=== PATIENT | female | born 2000 | race Caucasian/White ===

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

== ENCOUNTER 2020-06-15 22:10 | Emergency (ER) | payer OTHER ==
[~2020-06-15] VITALS: Ht 175.3 cm; Wt 68.2 kg
[~2020-06-15 22:10] MED LIST: K-DUR20 MEQ PO; WELLBUTRIN XL300 M1 PO
[2020-06-15 22:15] VITALS: TEMP 97.6
[2020-06-15 22:41] LABS: HEMATOCRIT 40.2 % (37.0-47.0); HEMOGLOBIN 13.3 g/dl (12.5-16.0); MEAN CELL VOLUME 87 fl (80.0-100.0); MEAN CORPUSCULAR HEMOGLOBIN 29 pg (27.0-31.0); MEAN CORPUSCULAR HGB CONC 33 g/dl (33.0-37.0); MEAN PLATELET VOLUME 9.4 fl (7.4-10.4); PLATELET COUNT 212 K/mm3 (130-400); RED BLOOD COUNT 4.63 M/mm3 (4.10-5.30); REDCELL DISTRIBUTION WIDTH-CV 12.7 % (11.5-14.5)
[2020-06-15 22:54] LABS: ALBUMIN 4.5 gm/dL (3.5-5.0); BILIRUBIN,TOTAL 0.9 mg/dL (0.0-1.0); CALCIUM 8.9 mg/dL (8.4-10.2); CREATININE, serum 1.4 (0.52-1.25); POTASSIUM 4.2 mmol/L (3.4-5.0); TOTAL PROTEIN 8.1 gm/dL (6.4-8.2)
[2020-06-15 23:20] LABS: BAND 24 % (0-10); LYMPHOCYTE 5 % (20.0-51.0); NEUTROPHILS 66 % (42.0-75.2)
[2020-06-15 23:21] LABS: PLATELET ESTIMATE NORMAL (NORMAL)
[2020-06-16 02:11] LABS: COLLECTION METHOD CLEAN CATCH
[2020-06-16 02:13] VITALS: BP 105/69; PULSE 89
[2020-06-16 02:27] LABS: MUCOUS Present /lpf; PH 5 (5-8); URINE APPEARANCE Clear; URINE BACTERIA None Seen /hpf; URINE BILIRUBIN Negative (NEGATIVE); URINE BLOOD Negative (NEGATIVE); URINE COLOR Yellow; URINE GLUCOSE Negative (NEGATIVE); URINE KETONE Negative (NEGATIVE); URINE LEUKOCYTE ESTERASE Trace (NEGATIVE); URINE NITRATE Negative (NEGATIVE); URINE PROTEIN(semi-quant) Negative (NEGATIVE); URINE RBC 0-2 /hpf; URINE UROBILINOGEN Negative (NEGATIVE)
== END 2020-06-16 02:12 | disposition home or self-care (01) ==
LOC: COL.ER 22:10
PROVIDERS: Physician Assistant
DX: K52.9 Noninfective gastroenteritis and colitis, unspecified (principal); E86.0 Dehydration; Z88.0 Allergy status to penicillin; Z88.1 Allergy status to other antibiotic agents
CPT/HCPCS: J1170; J2405; J7030; Q9967

== ENCOUNTER 2021-05-14 14:10 | Outpatient (CLI) | payer MEDICAID ==
[~2021-05-14] VITALS: Ht 172.7 cm; Wt 92.7 kg
--- NOTE | 2021-05-14 14:18 | NUR ---
1418- PT TO UNIT FROM CLINIC FOR EXTENDED MONITORING. TO LDR4 BY SELF, CHANGES INTO CLEAN GOWN. 1426- EFM EXPLAINED AND PLACED. PT REPORTS NORMAL MOVEMENT AND IRREGULAR CONTRACTIONS. DENIES LOF OR VB. ASSESSMENT COMPLETED, VS OBTAINED. POC REVIEWED. 1504- UPDATED ON PT. SEE PHYSICIAN NOTIFICATION. 1522- UPDATED ON PT. SEE PHYSICIAN NOTIFICATION. 1536- EFM OFF. PT UP TO BATHROOM TO CHANGE. 1548- DISCHARGE INSTRUCTIONS REVIEWED. PT VERBALIZES UNDERSTANDING. AMBULATORY OFF UNIT.
[2021-05-14 14:45] VITALS: BP 120/80; PULSE 102; TEMP 98.3
[2021-05-14] MEDS ORDERED: CEPHALEXIN500 M1 PO (14:48)
[2021-05-14] MEDS ORDERED: LAMICTAL 25MG T25 MG PO (14:48)
[2021-05-14] MEDS ORDERED: PRENATAL TABLET PO (14:49)
[2021-05-14] MEDS ORDERED: DIFFERIN0.3% TP (14:49)
[2021-05-14 15:15] VITALS: BP 119/75; PULSE 81
[2021-05-14 15:36] VITALS: BP 110/76; PULSE 90
== END 2021-05-14 15:48 | disposition home or self-care (01) ==
LOC: LDRO 14:10 → LDR 14:14 → LDRO 15:48
DX: Z34.93 Encounter for supervision of normal pregnancy, unspecified, third trimester (principal); Z3A.40 40 weeks gestation of pregnancy
CPT/HCPCS: OP

== ENCOUNTER 2021-05-22 06:18 | Inpatient (IN) | payer MEDICAID ==
[~2021-05-22] VITALS: Ht 172.7 cm; Wt 92.7 kg
[2021-05-22] VITALS (46 sets, daily range): BP systolic 98–182; BP diastolic 57–98; PULSE 74–139; TEMP 97.4–97.8
[~2021-05-22 06:18] MED LIST changes: +CEPHALEXIN500 M1 PO; +DIFFERIN0.3% TP; +LAMICTAL 25MG T25 MG PO; +PRENATAL TABLET PO
--- NOTE | 2021-05-22 07:48 | NUR ---
0620: AMBULATORY TO UNIT WITH FOB FOR SCHEDULED INDUCTION OF LABOR FOR POST DATES. PT. ESCORTED TO LR4 AND INSTRUCTED ON NEXT STEPS. CHANGED INTO CLEAN GOWN. EFM/TOCO APPLIED TO PT AND EXPLAINED. VS OBTAINED, ASSESSMENTS COMPLETED, CONSENTS GONE OVER/SIGNED, AND IV PLACED. DISCUSSED PLAN OF CARE WITH PT. AND SHE IS UNDERSTANDING AND AGREEABLE. NO QUESTIONS OR CONCERNS AT THIS TIME. SVE PERFORMED /. WILL CONTINUE TO MONITOR PT.
[2021-05-22 07:51] LABS: BASO % 0.3 % (0.0-2.0); EOS # 0.1 (0.0-0.7); EOS % 0.6 % (0-4.0); GRAN # 7.6 (1.4-6.5); GRAN % 72.4 % (42.2-75.2); HEMATOCRIT 39.3 % (37.0-47.0); HEMOGLOBIN 13.4 g/dl (12.5-16.0); LYMPH # 2.2 (1.2-3.4); LYMPH % 20.6 % (20.0-51.0); MEAN CELL VOLUME 91 fl (80.0-100.0); MEAN CORPUSCULAR HEMOGLOBIN 31 pg (27.0-31.0); MEAN CORPUSCULAR HGB CONC 34 g/dl (33.0-37.0); MEAN PLATELET VOLUME 10.7 fl (7.4-10.4); MONO # 0.6 (0.1-0.6); MONO % 5.3 % (1.7-9.3); PLATELET COUNT 195 K/mm3 (130-400); RED BLOOD COUNT 4.34 M/mm3 (4.10-5.30); REDCELL DISTRIBUTION WIDTH-CV 14.7 % (11.5-14.5)
--- NOTE | 2021-05-22 07:55 | NUR ---
HEART TONES: 0700: PERIOD OF MINIMAL VARIABILITY NOTED. PT. TURNED TO R. SIDE 0730: PERIODS OF MINIMAL VARIABILITY NOTED.
--- NOTE | 2021-05-22 11:03 | NUR ---
EPIDURAL: 1016: LR BOLUS STARTED 1030: JARROD RAMIREZ CALLED FOR EPIDURAL 1034: SITTING UP FOR EPIDURAL 1038: JARROD RAMIREZ AT FOR EPIDURAL 1040: TIME OUT PERFORMED 1044: SINGLE SHOT PT. TOLERATED PROCEDURE WELL. NO QUESTIONS OR CONCERNS AT THIS TIME. WILL CONTINUE TO MONITOR PT
--- NOTE | 2021-05-22 18:58 | NUR ---
DELIVERY NOTE: PT. COMPLETE AT 1542. LEFT MESSAGE W/ DR. CAMPUZANO ABOUT SVE. DR. CAMPUZANO ON UNIT AT 1600. INSTRUCTED TO START PUSHING WITH PT. 1605: STARTED PUSHING W/ PATIENT. DESCENT WITH PUSHING. PUSHED IN LITHOTOMY, TUG OF WAR PUSHING, AND CLOSED KNEE PUSHING WAS DONE WITH GOOD PROGRESSION. 1710: DR. CAMPUZANO AT FOR DELIVERY 1715: DELIVERED VIABLE MALE VIA . INFANT PLACED ON ABDOMEN AND NURSERY NURSE TOOK OVER CARE OF INFANT. 1719: PLACENTA OUT AND PITOCIN STARTED. PER DR. CAMPUZANO, SECOND DEGREE WAS NOTED. DR. CAMPUZANO AT PERINEUM FOR LACERATION REPAIR. 1730: FUNDAL RUB WAS PERFORMED BY DR. CAMPUZANO AND THIS RN. FUNDUS FIRM AT UMBILICUS WITH MINIMAL BLEEDING. EBL 200ML PER DR. CAMPUZANO (SEE DELIVERY NOTE). PT. ENTERS RECOVERY AND WILL CONTINUE TO MONITOR
--- NOTE | 2021-05-22 19:30 | NUR ---
1930 IV TO INT. EPID CATH REMOVED. MOVES LEGS WELL IN BED. UP TO BR WITH ASSIST AND UNABLE TO VOID. PERICARE DONE AND AMB TO 214 WITH DIFFICULTY. ICE TO PERINEUM. ORIENTED TO ROOM.
--- NOTE | 2021-05-22 20:45 | NUR ---
Assumed care at this time.
[2021-05-23 01:40] VITALS: BP 124/76; PULSE 87; TEMP 97.6
[2021-05-23 05:10] VITALS: BP 118/79; PULSE 73; TEMP 97.1
[2021-05-23 08:45] VITALS: BP 128/88; PULSE 96; TEMP 98.1
[2021-05-23] MEDS ORDERED: IBU800 M1 PO (09:15)
--- NOTE | 2021-05-23 09:43 | NUR ---
Initial visit; Parents thanked Multi Spindle Operator for offering congratulations and God's blessings for the of their son. Multi Spindle Operator thanked family for choosing our hospital.
[2021-05-23 17:01] VITALS: BP 135/79; PULSE 92; TEMP 97.7
[2021-05-23 23:15] VITALS: BP 113/76; PULSE 92; TEMP 97.6
[2021-05-24 07:40] VITALS: BP 123/70; PULSE 93; TEMP 98
[2021-05-24] MEDS ORDERED: ROXICODONE 55 MG/TAB PO (08:07)
== END 2021-05-24 17:00 | disposition home or self-care (01) | DRG 807 ==
LOC: LDR 06:18 → OB 06:18
PROVIDERS: ADMIT Student in an Organized Health Care Education/Training Program
PROC: 10E0XZZ Delivery of Products of Conception, External Approach (ICD-10-PCS; principal; 2021-05-22)
PROC: 0KQM0ZZ Repair Perineum Muscle, Open Approach (ICD-10-PCS; 2021-05-22)
PROC: 3E033VJ Introduction of Other Hormone into Peripheral Vein, Percutaneous Approach (ICD-10-PCS; 2021-05-22)
DX: O48.0 Post-term pregnancy (principal); Z37.0 Single live birth; O99.344 Other mental disorders complicating childbirth; F32.9 Major depressive disorder, single episode, unspecified; O70.1 Second degree perineal laceration during delivery; O69.81X0 Labor and delivery complicated by cord around neck, without compression, not applicable or unspecified; Z3A.41 41 weeks gestation of pregnancy
CPT/HCPCS: J2405; J2590; J2795; J7120

== ENCOUNTER 2024-06-16 12:09 | Inpatient (IN) | payer OTHER ==
[~2024-06-16] VITALS: Ht 175.3 cm; Wt 84.5 kg
[~2024-06-16 12:09] MED LIST changes: +ATARAX 25MG25 MG/TAB PO; +IBU800 M1 PO; +ROXICODONE 55 MG/TAB PO
[2024-06-23] VITALS (26 sets, daily range): BP systolic 100–131; BP diastolic 55–83; PULSE 68–114; TEMP 98–98.4
[2024-06-23] MEDS ORDERED: LR 1,000 ML IV SCH (06:15)
[2024-06-23] MEDS ORDERED: LR & Oxytocin 500 ML IV SCH (06:15)
--- NOTE | 2024-06-23 07:00 | NUR ---
PT AMBULATES ONTO THE UNIT WITH SIGNIFICANT OTHER FOR INDUCTION OF LABOR. PT DENIES LOF/VB.PT REPORTS DORIAN MARSH CONTRACTIONS IRREGULARLY.PT CHANGED INTO GOWN.POC REVIEWED WITH PT.PT VERBALIZES UNDERSTANDING.EFM AND TOCO APPLIED AND TRACING CATEGORY 1. CONSENTS REVIEWED AND SIGNED BY PT.QUESTIONS ASKED AND ANSWERED.
[2024-06-23 07:48] LABS: HEMATOCRIT 38.2 % (37.0-47.0); HEMOGLOBIN 12.8 g/dl (12.5-16.0); MEAN CELL VOLUME 90 fl (80.0-100.0); MEAN CORPUSCULAR HEMOGLOBIN 30 pg (27-31); MEAN CORPUSCULAR HGB CONC 34 g/dl (33.0-37.0); MEAN PLATELET VOLUME 10.9 fl (7.4-10.4); PLATELET COUNT 196 K/mm3 (130-400); RED BLOOD COUNT 4.24 M/mm3 (4.10-5.30); REDCELL DISTRIBUTION WIDTH-CV 13.8 % (11.5-14.5)
--- NOTE | 2024-06-23 07:55 | NUR ---
DR DOWD AT BEDSIDE. SVE 2-/-2. 0750 AROM PERFORMED WITH CLEAR FLUID.PT TOLERATED PROCEDURE WELL.
[2024-06-23] MEDS ORDERED: ROPivacaine PF 0.2% 200 ML IV ONE (08:12)
[2024-06-23 08:20] LABS: BASO % 0.2 % (0.0-2.0); EOS # 0.1 K/mm3 (0.0-0.7); EOS % 0.5 % (0.0-4.0); GRAN # 6.7 K/mm3 (1.4-6.5); GRAN % 71.2 % (42.2-75.2); LYMPH % 21.4 % (20.0-51.0); MONO # 0.6 K/mm3 (0.1-0.6); MONO % 6.3 % (1.7-9.3)
--- NOTE | 2024-06-23 08:43 | NUR ---
PT SITTING ON THE SIDE OF THE BED FOR EPIDURAL PLACEMENT.LR BOLUS INFUSING PER PROTOCOL.PULSE OX AND BP TRACING EVERY 5 MINUTES. DIFFICULTY TRACING EFM AND TOCO DUE TO MATERNAL POSITIONING. 0835 SINGLE SHOT ADMINISTERED PER JARROD SANTILLAN.PT TOLERATED PROCEDURE WELL.
[2024-06-23] MEDS ORDERED: Ondansetron 4 MG/2 ML VIAL IV PRN (09:00)
[2024-06-23] MEDS ORDERED: Naloxone 0.4 MG/ML VIAL IV PRN ×2 (09:00→11:45)
[2024-06-23] MEDS ORDERED: ePHEDrine 50 MG/10 ML VIAL IV PRN (09:00)
[2024-06-23] MEDS ORDERED: diphenhydrAMINE 25 MG CAP PO PRN (09:00)
[2024-06-23] MEDS ORDERED: diphenhydrAMINE 50 MG/ML 1 ML VIAL IV PRN (09:00)
--- NOTE | 2024-06-23 11:31 | NUR ---
1105 DECEL NOTED AND AUDIBLE INTO THE 90'S.THIS RN AT BEDSIDE. SVE 8/100/-1. PT REPOSITIONED TO WEDGED RIGHT LATERAL. HEARTRATE RECOVERS AT THIS TIME.
[2024-06-23] MEDS ORDERED: oxyCODONE 5 MG TAB PO PRN (11:45)
[2024-06-23] MEDS ORDERED: Measles/Mumps/Rubella Virus Vaccine Live w Diluent 0.5 ML VIAL SQ SCH (11:45)
[2024-06-23] MEDS ORDERED: Magnes Hydrox (MOM) 80 MG/ML 30 ML CUP PO PRN (11:45)
[2024-06-23] MEDS ORDERED: Phenylephrine/Mineral Oil/Petrolatum 57 GM TUBE RC PRN (11:45)
[2024-06-23] MEDS ORDERED: Witch Hazel 50% Pads Bulk TUB TP PRN (11:45)
[2024-06-23] MEDS ORDERED: Ibuprofen 800 MG TAB PO SCH (11:45)
[2024-06-23] MEDS ORDERED: Loratadine 10 MG TAB PO PRN (11:45)
[2024-06-23] MEDS ORDERED: Acetaminophen 500 MG TAB PO PRN (11:45)
[2024-06-23] MEDS ORDERED: Mag/Al Hydrox/Simeth Susp 30 ML CUP PO PRN (11:45)
--- NOTE | 2024-06-23 12:42 | NUR ---
1145 DR DOWD AT BEDSIDE.PT COMPLETE PER SVE. ROOM PREPARED FOR DELIVERY.ALL APPROPRIATE STAFF NOTIFIED. 1158 OF VIABLE FEMALE .NUCHAL CORD X1 EASILY REDUCED BY DR DOWD.STRONG CRY NOTED AT DELIVERY WITH STIMULATION. CORD CLAMPED AND CUT BY FATHER OF THE BABY. PLACED ON MATERNAL ABDOMEN. INFANT CARES ASSUMED BY ANGIE HALLMAN RN. 1159 OF INTACT PLACENTA. PITOCIN BOLUS INFUSING PER PROTOCOL. FUNDUS FIRM AT THE UMBILICUS WITH FUNDAL MASSAGE.LOCHIA WITHIN NORMAL LIMITS. TOTAL QBL FOR CASE 125CC.
[2024-06-23] MEDS ORDERED: MOTRIN 800800 MG/TAB PO (15:48)
[2024-06-23] MEDS ORDERED: Sennosides/Docusate 8.6-50 MG TAB PO SCH (17:00)
[2024-06-23] MEDS ORDERED: traZODone 50 MG TAB PO PRN (21:00)
[2024-06-24 00:45] VITALS: BP 110/69; PULSE 74; TEMP 97.8
[2024-06-24 04:48] VITALS: BP 124/77; PULSE 83; TEMP 97.9
--- NOTE | 2024-06-24 06:02 | NUR ---
PT IS WITHOUT COMPLAINT AT THIS TIME. HAD SEVERE CRAMPING WHEN NURSING WHICH WAS RELIEVED WITH MEDICATION. BLEEDING HAS BEEN WNL. BABY HAS BEEN KEEPING HER AWAKE MOST OF THE NIGHT BUT THE PT DECLINED HAVING HER TAKEN TO THE NURSERY. PT HAS APPEARED TO BE COPING WELL DESPITE HAVING SOME CONCERNS ABOUT AND THE BABY BEING FUSSY. HOPES TO BE DISCHARGED TODAY.
[2024-06-24 08:30] VITALS: BP 102/69; PULSE 73; TEMP 97.8
[2024-06-24] MEDS ORDERED: lamoTRIgine 100 MG TAB PO ONE (08:30)
--- NOTE | 2024-06-24 09:43 | NUR ---
Initial visit; Patient thanked Charge Account Identification Clerk for offering congratulations and God's blessings to her family for the of their daughter. Charge Account Identification Clerk thanked patient for choosing our hospital and wished them well.
== END 2024-06-24 14:10 | disposition home or self-care (01) | DRG 807 ==
LOC: LDR 06-23 06:35 → OB 06-23 11:09
PROVIDERS: ADMIT Obstetrics & Gynecology
PROC: 10E0XZZ Delivery of Products of Conception, External Approach (ICD-10-PCS; principal; 2024-06-23)
PROC: 10907ZC Drainage of Amniotic Fluid, Therapeutic from Products of Conception, Via Natural or Artificial Opening (ICD-10-PCS; 2024-06-23)
PROC: 3E033VJ Introduction of Other Hormone into Peripheral Vein, Percutaneous Approach (ICD-10-PCS; 2024-06-23)
DX: O99.344 Other mental disorders complicating childbirth (principal); Z37.0 Single live birth; Z3A.39 39 weeks gestation of pregnancy; O69.81X0 Labor and delivery complicated by cord around neck, without compression, not applicable or unspecified; F32.A Depression, unspecified; F41.9 Anxiety disorder, unspecified; Z23 Encounter for immunization
CPT/HCPCS: J2405; J2590; J2795; J7120